=== PATIENT | female | born 1955 | race Caucasian/White ===

== ENCOUNTER 2019-06-02 10:30 | Day surgery (SDC) | payer OTHER ==
[~2019-06-02 10:30] MED LIST: CEFAZOLIN 2 GM/50 ML (PMX) 50 ML IVPB
[2019-06-02 11:42] LABS: ADD UMIC YES; UR ASCORBIC ACID NEGATIVE (NEGATIVE); UR BILIRUBIN (Dip) NEGATIVE (NEGATIVE); UR BLOOD (Dip) 2+ mg/dL (NEGATIVE); UR CLARITY CLEAR (CLEAR); UR COLOR YELLOW (YELLOW); UR GLUCOSE (Dip) NEGATIVE (NEGATIVE); UR KETONES (Dip) NEGATIVE (NEGATIVE); UR LEUKOCYTE ESTERASE (Dip) NEGATIVE Leu/ul (NEGATIVE); UR NITRITE (Dip) NEGATIVE (NEGATIVE); UR RBC 10 /HPF (0-5); UR SPECIFIC GRAVITY (Dip) 1.016 (1.003-1.030); UR TOTAL PROTEIN (Dip) NEGATIVE (NEGATIVE); UR UROBILINOGEN (Dip) NEGATIVE (NEGATIVE); UR WBC 0 /HPF (0-5)
[2019-06-02 12:06] LABS: PROTIME 12.3 Sec (11.9-14.9)
[2019-06-02 12:07] LABS: PARTIAL THROMBOPLASTIN TIME 29.7 Sec (23.0-35.0)
[2019-06-02] MEDS ORDERED: PROPOFOL 100 ML (12:42)
[2019-06-02] MEDS ORDERED: FENTAnyl 50 MCG/ML VIAL (12:44)
[2019-06-02] MEDS ORDERED: LIDOCAINE 2% (SDV) 5 ML INJ (13:16)
[2019-06-02] MEDS ORDERED: CEFAZOLIN 1 GM INJ (13:16)
[2019-06-02] MEDS ORDERED: KETOROLAC 30 MG INJ IV (14:00)
[2019-06-02] MEDS ORDERED: OXYCODONE/ACETAMINOPHEN (5/325) TAB PO ×2 (14:00)
[2019-06-02] MEDS ORDERED: MEPERIDINE 25 MG INJ IV (14:00)
[2019-06-02] MEDS ORDERED: ALBUTEROL 0.083% (NEB) 2.5 MG/3 ML AMP HHN (14:00)
[2019-06-02] MEDS ORDERED: FENTAnyl 50 MCG/ML VIAL IV ×3 (14:00)
[2019-06-02] MEDS ORDERED: hydrALAzine 20 MG INJ IV (14:00)
[2019-06-02] MEDS ORDERED: DIPHENHYDRAMINE 50 MG INJ IV (14:00)
[2019-06-02] MEDS ORDERED: LABETALOL HCL 20MG INJ IV (14:00)
[2019-06-02] MEDS ORDERED: EPHEDrine 25 MG/5 ML SYG IV (14:00)
[2019-06-02] MEDS ORDERED: ONDANSETRON 4 MG INJ IV (14:00)
[2019-06-02] MEDS: HYDROCODONE/APAP (5/325) TAB PO (15:23)
== END 2019-06-02 15:35 | disposition home or self-care (01) ==
LOC: SDS 10:30
DX: N32.89 Other specified disorders of bladder (principal); E78.00 Pure hypercholesterolemia, unspecified
CPT/HCPCS: 52204; 81001; 85610; 85730; 87086; 88305